=== PATIENT | male | born 1955 | race Caucasian/White ===

== ENCOUNTER → 2016-05-18 | Outpatient (CLI) | payer OTHER ==
[~2016-05-18] MED LIST: ATV5 PO; DOXYCYCLINE PO; LEVO50TA6 PO; MORP30TA23 PO; RXC5 PO; ULT/50 PO
[2016-05-18 18:01] LABS: BLOOD UREA NITROGEN 19 mg/dl (7-18)
== END | disposition home or self-care (01) ==
LOC: C.LABMFLN 14:36
PROVIDERS: ATTEND Family Medicine
DX: Z01.812 Encounter for preprocedural laboratory examination (principal)

== ENCOUNTER → 2016-06-19 | Outpatient (CLI) | payer OTHER ==
[2016-06-19 17:44] LABS: BASO % 0.4 %; BASO ABS # 0.02 K/uL (0-0.2); COMPLETE YES; EOS % 2.4 %; HEMATOCRIT 40.2 % (42-52); IG% 0.4 %; LYMPH % 33.5 %; LYMPH ABS # 1.78 K/uL (1.2-3.4); MEAN CELL VOLUME 88.7 fL (80-100); MEAN CORPUSCULAR HEMOGLOBIN 31.1 pg (25-34); MEAN CORPUSCULAR HGB CONC 35.1 g/dl (32-36); MEAN PLATELET VOLUME 10.5 fL (7.4-10.4); NEUT % 54.3 %; PLATELET COUNT 141 K/uL (130-400); RED BLOOD COUNT 4.53 M/uL (4.7-6.1); WHITE BLOOD COUNT 5.31 K/uL (4.8-10.8)
[2016-06-19 17:56] LABS: ESTIMATED AVERAGE GLUCOSE 123 mg/dl; HA1C FLAG Normal (Normal)
[2016-06-19 18:00] LABS: BLOOD UREA NITROGEN 17 mg/dl (7-18); BUN/CREATININE RATIO 15.5 (10-20); CALCIUM 8.9 mg/dl (8.5-10.1); CARBON DIOXIDE 31 mmol/L (21-32); CHLORIDE 106 mmol/L (98-107); GLUCOSE 111 mg/dl (70-99); POTASSIUM 4.3 mmol/L (3.5-5.1); SODIUM 142 mmol/L (136-145)
--- NOTE | 2016-06-25 09:25 | CODING QUERY MEDICAL NECESSITY ---
SUPPORTING DIAGNOSIS NEEDED Dr. Lopez, A supporting diagnosis is required for the test/procedure performed on this patient in order for us to be reimbursed by the patient's insurance. Please provide a supporting diagnosis for the following test/procedure listed below next to the test name along with your signature. *If there is no additional diagnosis for this patient that would support the following test/procedure please document that below next to the test/procedure. Test(s)/Procedure(s) that require a supporting diagnosis: * 60719 GLYCATED HEMOGLOBIN DIAGNOSIS: DATE OF SERVICE: 06/19/16 Provider Signature: Date: Thank you Adonis Saldana [facility] Information Management Once completed, please kindly fax back to [phone] For questions please call [phone]
== END | disposition home or self-care (01) ==
LOC: C.LABMFLN 12:06
PROVIDERS: ATTEND Family Medicine
DX: E03.9 Hypothyroidism, unspecified (principal); R63.5 Abnormal weight gain; R06.00 Dyspnea, unspecified; R73.03 Prediabetes

== ENCOUNTER 2016-08-07 07:05 | Inpatient (IN) | payer OTHER ==
[2016-07-23 13:10] VITALS: BMI 34.0
--- NOTE | 2016-07-23 13:47 | PAT Medication Instructions ---
Service Date Jul 23, 2016. Current Home Medication List Levothyroxine Sodium (Levothyroxine Sodium), 1 TAB PO QAM Tramadol Hcl (Ultram), 100 MG PO HS Medication Instructions For Your Scheduled Surgery - Take the following medications the morning of surgery with a sip of water: Levothyroxine Sodium (Levothyroxine Sodium), 1 TAB PO QAM - Take the following medications as scheduled the night before surgery: Tramadol Hcl (Ultram), 100 MG PO HS If you have any questions please call us at [phone] ([place] PA-C ) or [phone] or [phone]
[2016-07-23 14:44] LABS: URINE APPEARANCE CLEAR (CLEAR); URINE BILIRUBIN NEG (NEG); URINE COLOR YELLOW; URINE NITRITE NEG (NEG); URINE SPECIFIC GRAVITY 1.024 (1.000-1.030); UROBILINOGEN NEG (NEG)
[2016-07-23 14:51] LABS: MANUAL MICROSCOPIC REQUIRED? NO; REVIEW REQ? NO
--- NOTE | 2016-08-06 15:26 | HISTORY & PHYSICAL EXAMINATION ---
DATE OF ADMISSION: 08/07/2016 HISTORY OF PRESENT ILLNESS: Mr. Foss is a patient who is well known to our practice. He had previously undergone a lumbar decompression and fusion from L2 to sacrum. He presented to our office with increasing pain in the lower portion of his back and pain going down both of his legs. The pain is in a fairly constant fashion. He has a hard time standing and walking and feels like his coordination is off. His symptoms have been getting worse at this point and is considering possible surgical intervention. Past medical history is significant for lumbar disc herniation with a L2-L5 decompression and fusion performed in 2009. Also suffers from enlarged prostate, Lyme disease, spinal stenosis, thyroid disease. PAST SURGICAL HISTORY: Significant for low back surgery in 2009, foot surgery in 1969 and ankle surgery in 1973. MEDICATIONS: Include tramadol. ALLERGIES: He has no listed drug allergies. REVIEW OF SYSTEMS: Recorded in patient history. SOCIAL HISTORY: The patient is a 60-year-old male. He is single. Denies any alcohol or tobacco use and quit in October of 2015. Using tobacco, used for 35 years. PHYSICAL EXAMINATION: GENERAL: He stands and moves slowly about the exam room. MUSCULOSKELETAL: Lower extremity motor exam reveals no focal atrophy, although there is a break-away exam secondary to the pain. Sensation is intact to light touch. Proprioception is intact. Gait stable with a well-healed midline surgical scar. NEUROLOGIC: Visual anderson are grossly intact. CARDIOVASCULAR EXAMINATION: Reveals no gross abnormalities. ABDOMEN: Soft, nontender. EXTREMITIES: Calves are supple and nontender. The patient is alert and oriented. RADIOGRAPHIC IMAGES: Recent MRI of the lumbar spine is available for review. This reveals previous decompression and fusion from L2-L5. There is a large L1-2 disc herniation with inferior migration of free fragment. This occupies most of the canal. 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 PLAN: At this point, the patient is having significant symptoms in his lower back affecting both of his legs. He has been unable to tolerate his symptoms, unable to perform normal activities and is considering surgical operation. Intervention would include removing the hardware from L2-L5, decompressing the L1-2 segment and continuing fusion from T11-T12 back down to his previous fusion mass. Main benefit of this approach is significant chance for reduction of his radicular complaints to a lesser degree his back pain. Risks of surgery include but are not limited to from anesthetic, stroke, blindness, infection, bleeding requiring transfusion, incomplete relief of symptoms, adjacent level disease and need for reoperation. After a thorough discussion, he would like to proceed with surgery as outlined above and will make necessary arrangements for this, get preoperative testing and date of surgery set and will proceed with surgical intervention as outlined above. MARTIN
[~2016-08-07] VITALS: Ht 190.5 cm; Wt 125.7 kg
[2016-08-07] VITALS (8 sets, daily range): BP systolic 127–166; BP diastolic 72–93; PULSE 70–84; TEMP 36.3–36.7; O2SAT 94–99; Ht 190.5 cm; Wt 125.7 kg
[~2016-08-07 07:05] MED LIST changes: -ATV5 PO; +CEFAZOLIN 3000 MG/65 ML D5W IV SCH; -DOXYCYCLINE PO; +LACTATED RINGER'S 1000ML 1,000 ML IV SCH; -MORP30TA23 PO; -RXC5 PO
--- NOTE | 2016-08-07 07:29 | History & Physical Bridge Note ---
H&P Re-Evaluation Bridge Note: I have examined the patient, reviewed the History & Physical and in the interval since the performance of the History & Physical I have noted the following changes of clinical significance: No changes noted
[2016-08-07] MEDS ORDERED: FENTANYL CITRATE INJ 50 MCG/1 ML 2 ML VIAL ONE ×6 (08:34→11:58)
[2016-08-07] MEDS ORDERED: MIDAZOLAM HCL 1 MG/ML 2ML VIAL ONE (08:34)
[2016-08-07] MEDS ORDERED: SODIUM CHLORIDE 0.9% PF 50 ML VIAL ONE (08:58)
[2016-08-07] MEDS ORDERED: BACITRACIN 50000 UNIT VIAL ONE (08:58)
[2016-08-07] MEDS ORDERED: BUPIVACAINE/EPINEPHRINE 0.5% MPF 1:200,000 30 ML VIAL ONE (08:58)
[2016-08-07] MEDS ORDERED: HYDROmorphone INJ 2 MG/ML SYR/VIAL ONE ×3 (09:40→11:34)
[2016-08-07] MEDS ORDERED: HYDROmorphone INJ 1 MG/ML SYR IV PRN (09:45)
[2016-08-07] MEDS ORDERED: ATROPINE SULFATE 0.1 MG/ML 5ML SYR IV PRN (09:45)
[2016-08-07] MEDS ORDERED: ONDANSETRON INJ 2 MG/ML 2 ML VIAL IV PRN ×2 (09:45→11:15)
[2016-08-07] MEDS ORDERED: FENTANYL CITRATE INJ 50 MCG/1 ML 2 ML VIAL IV PRN (09:45)
[2016-08-07] MEDS ORDERED: LABETALOL HCL IV 5 MG/ML 20ML IV PRN (09:45)
[2016-08-07] MEDS ORDERED: MEPERIDINE HCL 25 MG/ML CARP IV PRN (09:45)
[2016-08-07] MEDS ORDERED: EpHEDrine SULFATE INJ 50 MG/ML AMP IV PRN (09:45)
[2016-08-07] MEDS ORDERED: DEXAMETHASONE SOD INJ 4 MG/ML VIAL ONE (11:06)
[2016-08-07] MEDS ORDERED: LIDOCAINE HCL 2% 2 ML VIAL (20MG/ML) ONE (11:06)
[2016-08-07] MEDS ORDERED: ROCURONIUM BROMIDE 10 MG/ML 5 ML VIAL ONE (11:06)
[2016-08-07] MEDS ORDERED: ONDANSETRON INJ 2 MG/ML 2 ML VIAL ONE ×2 (11:06→11:36)
[2016-08-07] MEDS ORDERED: PHENYLEPHRINE 100MCG/ML 5ML SYR ONE ×2 (11:06→11:36)
[2016-08-07] MEDS ORDERED: PROPOFOL IV EMULSION 10 MG/ML 20 ML VIAL IV ONE (11:06)
[2016-08-07] MEDS ORDERED: FLOSEAL HEMOSTATIC MATRIX 10ML TOP ONE (11:12)
[2016-08-07] MEDS ORDERED: MAGNESIUM HYDROXIDE SUSP 30 ML UDC PO PRN (11:15)
[2016-08-07] MEDS ORDERED: ACETAMINOPHEN 500 MG TAB PO PRN (11:15)
[2016-08-07] MEDS ORDERED: NALOXONE HCL 0.4 MG/1 ML VIAL/CARP IV PRN ×2 (11:15)
[2016-08-07] MEDS ORDERED: ALUMINUM/MAGNESIUM SUSP 30 ML UDC PO PRN (11:15)
[2016-08-07] MEDS ORDERED: SODIUM CHLORIDE 0.9% 1000ML 1,000 ML IV SCH (11:15)
[2016-08-07] MEDS ORDERED: PROMETHAZINE HCL INJ 12.5 MG in SODIUM CHLORIDE 0.9% 50ML 50 ML IV PRN (11:15)
[2016-08-07] MEDS ORDERED: FAMOTIDINE 20 MG TAB PO PRN (11:15)
[2016-08-07] MEDS ORDERED: HYDROmorphone INJ 0.5 MG/0.5 ML SYR IV PRN (11:15)
[2016-08-07] MEDS ORDERED: METOCLOPRAMIDE HCL INJ 5 MG/ML 2 ML VIAL IV PRN (11:15)
[2016-08-07] MEDS ORDERED: ACETAMINOPHEN IV 100 ML IV PRN (11:15)
[2016-08-07] MEDS ORDERED: hydrOXYzine HCL 25 MG TAB PO PRN (11:15)
[2016-08-07] MEDS ORDERED: BISACODYL 10 MG SUPP PR PRN (11:15)
[2016-08-07] MEDS ORDERED: DO NOT ADMINISTER PNEUMOCOCCAL VACCINE PRN ×2 (11:15)
[2016-08-07] MEDS ORDERED: LORAZEPAM INJ 0.5 MG in SYRINGE 0 ML IV PRN (11:15)
[2016-08-07] MEDS ORDERED: SOD PHOSPHATE/SOD BIPHOSPHATE ENEMA 132 ML BTL PR PRN (11:15)
[2016-08-07] MEDS ORDERED: LORAZEPAM 0.5 MG TAB PO PRN (11:15)
[2016-08-07] MEDS ORDERED: DO NOT ADMINISTER FLU VACCINE PRN ×3 (11:15)
--- NOTE | 2016-08-07 11:15 | [facility] Post Operative Brief Note ---
Immediate Operative Summary Operative Date Aug 07, 2016. 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 Mauri Germain Manager Export Surgeon(s) Elan Bell PA-C Estimated Blood Loss 350ml Findings stenosis Specimens A: Explanted hardware lumbar spine L2-L5
--- NOTE | 2016-08-07 11:26 | DIAGNOSTIC IMAGING REPORT ---
LUMBAR SPINE 2 OR 3 VIEW CLINICAL HISTORY: L1-L5 DECOMPRESSION laminectomy TECHNIQUE: Image intensifier COMPARISON STUDY: None FINDINGS: Image intensifier utilization for laminectomy and fusion of the lumbar spine from L1 through L5 IMPRESSION: Image intensifier utilization for laminectomy and fusion of the lumbar spine Electronically signed by: Tl Moyer M.D. 08/07/2016 11:24 AM Dictated Date/Time: 08/07/2016 11:23 AM
[2016-08-07] MEDS ORDERED: KETOROLAC TROMETHAMINE 30 MG/ML VIAL ONE (11:36)
[2016-08-07] MEDS ORDERED: NEOSTIGMINE METHYLSULFATE 1 MG/ML 10ML VIAL ONE (11:36)
[2016-08-07] MEDS ORDERED: GLYCOPYRROLATE INJ 0.2 MG/ML VIAL ONE (11:36)
--- NOTE | 2016-08-07 11:36 | OPERATIVE REPORT ---
DATE OF OPERATION: 08/07/2016 PREOPERATIVE DIAGNOSES: Spinal stenosis, herniated nucleus pulposus. POSTOPERATIVE DIAGNOSIS: Same. PROCEDURE PERFORMED: 1. Removal of posterior segmental instrumentation, L2-L3, L3-L4, L4-L5. 2. Exploration of fusion L2-L3, L3-L4, L4-L5. 3. Lumbar decompression, medial facetectomy and foraminotomy T12-L1 and L1-L2. 4. Posterior spinal fusion, T12-L2. 5. Placement posterior segmental instrumentation using Medicare rods and screws T12-L2. 6. Placement of locally harvested morselized autograft posterior gutters. 7. Placement of Infuse collagen sponge combined with Mastergraft in posterior gutters. SURGEON: Dr. Mauri Germain. PEDIATRICS PHYSICIAN: Due to the complex nature of the procedure, the entire surgery was performed with the psychiatric technician assistant of CARMINA Kulkarni. The fundraising assistant, under direct supervision, was involved in the actual performance of all aspects of the surgical procedure including hemostasis, tissue retraction and incision, instrument management, patient positioning, and wound closure. ANESTHESIA: General. DISPOSITION: The patient awakened and taken to PACU in stable condition. HISTORY OF PATIENT'S PROBLEMS: This is a 60-year-old male who presents with above-mentioned diagnosis. After failing an extensive course of nonoperative care, elected to undergo the above-mentioned procedure. Risks, benefits, pros, cons, and alternatives were outlined in detail preoperatively. DESCRIPTION OF PROCEDURE: The patient was met with preoperatively, the case discussed and all questions were addressed. At that point the patient was taken back to operative suite and after undergoing successful general intubation via department of anesthesia, she was placed in prone position on Kaden table atop Galen frame. All bony prominences were well padded and the eyes were inspected to ensure there was no external pressure placed upon them. At this point, the thoracolumbar spine was prepped and draped in normal sterile fashion. Sharp dissection with the assistance of Bovie cautery performed down to and exposing the lamina and transverse processes of T12, L1 and instrumentation at the L2, L3, L4, L5 levels bilaterally. I then proceeded to remove the hardware bilaterally exploring the fusion mass and noting it to be intact. I then performed a complete laminectomy of L1, partial laminectomy of T12 addressing severe central and lateral recess disease. Pedicle screws were then placed in T10, T11, L2 and L3 bilaterally with the assistance of fluoroscopy and appropriate size eryn locked into position. The transverse processes of T12, L1, L2, L3, then burred to subcortical bleeding bone. Infuse collagen sponge combined with Mastergraft and locally harvested morselized autograft was placed in the posterior gutters. A 7 flat HAFSA drain inserted. Incision was closed with 1-0 Vicryl in the fascia, 2-0 Vicryl subcutaneously, 4-0 Monocryl for final skin closure. Steri-Strips and sterile dressing placed. The patient was awakened and taken to PACU in stable condition. I attest to the content of the Intraoperative Record and any orders documented therein. Any exceptio ns are noted below.
[2016-08-07] MEDS ORDERED: HYDROmorphone HCL 0.5MG/ML 50 ML CASSETTE ONE (11:55)
[2016-08-07] MEDS: HYDROmorphone HCL 0.5MG/ML 50 ML CASSETTE IV PRN ×2 (13:36→23:12)
[2016-08-07] MEDS: SODIUM CHLORIDE 0.9% 1000ML 1,000 ML IV SCH ×3 (14:07→23:26)
--- NOTE | 2016-08-07 16:13 | Anesthesiology Progress Note ---
Anesthesia Post Op Note Date & Time Aug 07, 2016 at 16:12 Vital Signs Pain Intensity: 4.0 Vital Signs Past 12 Hours Date Time Temp Pulse Resp B/P Pulse Ox O2 Delivery O2 Flow Rate FiO2 08/07/16 15:30 36.4 84 16 138/79 98 Nasal Cannula 4.0 08/07/16 14:32 36.4 77 16 146/77 98 Nasal Cannula 4.0 08/07/16 14:03 36.3 80 16 161/76 96 08/07/16 13:30 99 Nasal Cannula 4.0 08/07/16 13:30 99 Nasal Cannula 4.0 08/07/16 13:30 36.5 74 16 164/81 99 Nasal Cannula 4.0 08/07/16 13:05 36.8 71 16 148/82 96 Nasal Cannula 4 08/07/16 12:48 85 14 08/07/16 12:48 85 14 98 08/07/16 12:46 148/100 08/07/16 12:43 75 10 08/07/16 12:43 75 10 99 08/07/16 12:40 174/94 08/07/16 12:38 72 6 08/07/16 12:38 72 6 89 08/07/16 12:35 165/94 08/07/16 12:33 69 5 97 08/07/16 12:33 70 5 08/07/16 12:30 165/87 08/07/16 12:28 72 6 08/07/16 12:28 73 6 94 08/07/16 12:25 164/91 08/07/16 12:23 71 12 08/07/16 12:23 71 12 95 08/07/16 12:22 72 12 94 08/07/16 12:22 72 12 08/07/16 12:22 72 12 08/07/16 12:22 72 12 94 08/07/16 12:20 152/98 08/07/16 12:20 152/98 08/07/16 12:17 83 13 08/07/16 12:17 85 13 94 08/07/16 12:17 85 13 94 08/07/16 12:17 83 13 08/07/16 12:16 167/105 08/07/16 12:16 167/105 08/07/16 12:12 73 10 08/07/16 12:12 73 10 100 08/07/16 12:12 73 10 08/07/16 12:12 73 10 100 08/07/16 12:10 170/99 08/07/16 12:10 170/99 08/07/16 12:09 161/99 08/07/16 12:09 161/99 08/07/16 12:07 73 13 98 08/07/16 12:07 74 13 08/07/16 12:07 73 13 98 08/07/16 12:07 74 13 08/07/16 12:02 78 14 08/07/16 12:02 78 14 08/07/16 12:02 80 14 99 08/07/16 12:02 80 14 99 08/07/16 12:00 180/124 08/07/16 12:00 180/124 08/07/16 11:57 84 10 99 08/07/16 11:57 84 10 08/07/16 11:57 84 10 99 08/07/16 11:57 84 10 08/07/16 11:55 179/117 08/07/16 11:55 179/117 08/07/16 11:53 182/117 08/07/16 11:53 182/117 08/07/16 11:52 85 13 210/152 100 08/07/16 11:52 85 13 08/07/16 11:52 85 13 210/152 100 08/07/16 11:52 85 13 08/07/16 11:47 71 14 98 08/07/16 11:47 71 14 08/07/16 11:47 71 14 98 08/07/16 11:47 71 14 08/07/16 11:45 155/98 08/07/16 11:45 155/98 08/07/16 11:42 71 11 150/94 99 08/07/16 11:42 71 11 08/07/16 11:42 71 11 08/07/16 11:42 36.7 72 14 150/94 99 Mask 10 08/07/16 11:42 71 11 150/94 99 08/07/16 07:57 97 Room Air 08/07/16 07:56 36.7 70 20 166/93 Notes Mental Status: alert / awake / arousable, participated in evaluation Pt Amnestic to Procedure: Yes Nausea / Vomiting: adequately controlled Pain: adequately controlled Airway Patency, RR, SpO2: stable & adequate BP & HR: stable & adequate Hydration State: stable & adequate Anesthetic Complications: no major complications apparent
[2016-08-07] MEDS: CEFAZOLIN IV 3,000 MG in DEXTROSE 5% 50ML 50 ML IV SCH (18:21)
[2016-08-07] MEDS: DEXAMETHASONE INJ 6 MG in SYRINGE 0 ML IV SCH (20:00)
[2016-08-07] MEDS: DOCUSATE SODIUM/SENNA 50/8.6MG TAB PO SCH (21:00)
[2016-08-08] VITALS (7 sets, daily range): BP systolic 124–154; BP diastolic 62–86; PULSE 64–83; TEMP 36.4–36.7; O2SAT 94–98
[2016-08-08] MEDS: CEFAZOLIN IV 3,000 MG in DEXTROSE 5% 50ML 50 ML IV SCH (01:30)
[2016-08-08] MEDS: DEXAMETHASONE INJ 6 MG in SYRINGE 0 ML IV SCH ×2 (04:24→11:55)
[2016-08-08] MEDS: LEVOTHYROXINE 50 MCG TAB PO SCH (05:56)
[2016-08-08] MEDS ORDERED: DC PCA ONE (06:00)
[2016-08-08] MEDS ORDERED: NURSING VERBAL MED ORDER ONE (06:00)
[2016-08-08 06:01] LABS: BASO % 0.1 %; BASO ABS # 0.01 K/uL (0-0.2); COMPLETE YES; IG% 0.2 %; LYMPH % 8.6 %; LYMPH ABS # 0.79 K/uL (1.2-3.4); MEAN CELL VOLUME 86.8 fL (80-100); MEAN CORPUSCULAR HEMOGLOBIN 30.8 pg (25-34); MEAN CORPUSCULAR HGB CONC 35.5 g/dl (32-36); MEAN PLATELET VOLUME 10.2 fL (7.4-10.4); MONO % 5.2 %; NEUT % 85.9 %; PLATELET COUNT 131 K/uL (130-400); WHITE BLOOD COUNT 9.23 K/uL (4.8-10.8)
[2016-08-08 06:38] LABS: BUN/CREATININE RATIO 14.5 (10-20); CALCIUM 8.3 mg/dl (8.5-10.1); POTASSIUM 4.2 mmol/L (3.5-5.1)
[2016-08-08] MEDS: OXYCODONE HCL IR 5 MG TAB (IMMEDIATE RELEASE) PO PRN ×4 (06:57→23:32)
[2016-08-08] MEDS ORDERED: RXC5 PO (10:04)
--- NOTE | 2016-08-08 10:05 | Discharge Instructions ---
Discharge Instructions Date of Service Aug 08, 2016. Admission Reason for Admission: Spinal Stenosis Discharge Discharge Diagnosis / Problem: stenosis Discharge Goals Goal(s): Improve function Activity Recommendations Activity Limitations: per Instructions/Follow-up section . Instructions / Follow-Up Instructions / Follow-Up ACTIVITY RECOMMENDATIONS: SELF CARE INSTRUCTIONS AFTER THORACIC/LUMBAR FUSIONS 1. You may walk to your tolerance. It is good exercise for your legs and back. Expect some back and intermittent leg aches and pains. 2. You may perform "counter-top" level activities (make a sandwich, juancarlos with a project, etc.). 3. No bending or lifting of more than 10 pounds or back twisting of any nature (roll like a log when turning in bed). 4. You may ride in a car for 20-30 minutes at a time. No driving until after your first visit with your doctor. 5. Frequent changes of position and restricting sitting to 30 minutes at a time will help limit the amount of back spasms and stiffness you may experience. 6. You may discontinue the use of ambulatory aids (cane, crutches, etc.) once your strength and confidence allow. 7. You may medicine man the shower and let water strike your incision when you arrive home at least once daily. Do not take a tub bath, sit in a hot tub or go into a swimming pool until after your first recheck in the office. SPECIAL CARE INSTRUCTIONS: VERY IMPORTANT TO READ AND REVIEW A. Your surgical incision has been closed with a cosmetic suture under the skin that will dissolve in about 6 weeks. In 14 days, you can use a pair of clean scissors and cut the suture that is left outside of the skin at the ends of your incision. 1. The small skin tapes can be removed 7 days after surgery if they have not fallen off by that point. 2. You may keep the wound open to air as much as possible to promote healing after post-op day number 5 unless told otherwise by your doctor. 3. If you think the wound looks like it is becoming infected (redness or worsening drainage) and/or you are experiencing fever, chill or worsening back pain and muscle spasms, contact the office so that we may evaluate you as soon as possible. B. Complications are uncommon, but please contact us if you have any signs or symptoms of: 1. wound infection (fever higher than 102.5 degrees F, redness, separation of wound, drainage, or increasing pain from the incision) 2. blood clots in legs (pain, swelling, redness and warmth in legs) 3. urinary tract infection (fever higher than 102.5 degrees F, burning upon urination or increased frequency of urination) 4. nerve problems (inability to walk on your toes or heels, numbness, loss of bowel or bladder control) 5. any other symptoms that concern you C. Please call the office at if you have any concerns or questions about your operation or recovery. D. No smoking! Smoking drastically decreases the chance of a solid fusion. E. Do not take any anti-inflammatory medications (Indocin, Advil, Motrin, Aspirin, Naprosyn, etc.) as these may inhibit the chance of a solid fusion. Tylenol is okay to take for pain. MANAGING PAIN AFTER SPINAL SURGERY 1. Narcotic medication is intended for short-term use and will be provided for surgical pain. Surgical pain usually lasts for a period of 4-6 weeks. Narcotic medication includes Percocet, Vicodin, Darvocet, Tylenol #3 or Lortab. 2. Longer-term pain is more appropriately treated with non-narcotic medication such as Tylenol ES. 3. Muscle spasm is not appropriately treated with narcotics. Muscle relaxers such as Soma, Flexeril or Skelaxin can be used along with Tylenol ES. 4. Remember that we all live with some "aches and pains". This is not unusual or uncommon after an injury or as we get older. a. Back pain is expected and may include muscle spasms for 4 to 6 weeks after surgery. The pain should gradually improve. If the pain worsens for no apparent reason, please contact the office. b. Intermittent leg pain may also be experienced and should not be concerned about unless it worsens for no apparent reason. If so, please contact the office. 5. We will provide appropriate medication within the normal guidelines of their prescribed use. We will also be very cautious and aware of potential abuse and extended duration of patients' medication needs. a. Pain medications are for your comfort and to assist with sleep and rest so that the tissue can heal. They are not provided in order to return to normal activity and should not be used through the day. To do so or worsening pain at night can result from ongoing tissue damage and development of tolerance to the prescribed medicine. 6. Please allow 2-3 days to process refills. Prescriptions will not be mailed but must be picked up at the office. FOLLOW UP VISIT: Keep your scheduled follow-up appointment. Any questions, please call the office at . Current Hospital Diet Patient's current hospital diet: Regular Diet Discharge Diet Recommended Diet: Regular Diet Procedures Procedures Performed: L1-L2 Lumbar Laminectomy, Decompression, T12-L3 Posterolateral Fusion, Bone Morphogenetic Protein, L2-L5 Hardware Removal Pending Studies Studies pending at discharge: no Laboratory Results Hemoglobin A1c Test 06/19/16 13:42 Range/Units Estimated Average Glucose 123 mg/dl Hemoglobin A1c 5.9 H 4.5-5.6 % Medical Emergencies . Who to Call and When: Medical Emergencies: If at any time you feel your situation is an emergency, please call 911 immediately. . Non-Emergent Contact Non-Emergency issues call your: Primary Care Provider . "Provider Documentation" section prepared by Mauri Germain. VTE Core Measure Inpt VTE Proph given/why not?: Mary Liu, SCD's
--- NOTE | 2016-08-08 10:19 | PROGRESS NOTE ---
DATE: 08/08/2016 DATE: 08/08/2016. SUBJECTIVE: Postop day 1. Back pain is controlled. Leg pain markedly improved. Vital signs stable. T-max 36.6. HAFSA drained 120 mL last shift. Hematocrit this a.m. is 33.0. OBJECTIVE: On exam the patient is sitting up in bed, has good strength to testing, appears quite comfortable. ASSESSMENT: Status post thoracolumbar decompression and fusion. PLAN: At this time, initiate physical therapy, advance his bowel regimen and see how he progresses throughout the weekend and anticipate possible discharge home Wednesday.
[2016-08-08] MEDS: DOCUSATE SODIUM/SENNA 50/8.6MG TAB PO SCH (21:45)
[2016-08-09] MEDS: LEVOTHYROXINE 50 MCG TAB PO SCH (05:48)
[2016-08-09] MEDS: POLYETHYLENE (MIRALAX) 17 GM PACK PO SCH ×4 (05:48→23:48)
[2016-08-09] MEDS: OXYCODONE HCL IR 5 MG TAB (IMMEDIATE RELEASE) PO PRN ×4 (06:02→22:49)
[2016-08-09 06:29] VITALS: BP 128/67; PULSE 65; TEMP 36.7; O2SAT 96
--- NOTE | 2016-08-09 09:11 | PROGRESS NOTE ---
DATE: 08/09/2016 Postoperative day #2. Back pain is controlled. Leg pain is markedly improved. Vital signs are stable. T-max is 36.7. HAFSA drained 55 mL. PHYSICAL EXAMINATION: He is in chair at bedside. He has good strength to testing and appears comfortable. ASSESSMENT: Status post lumbar decompression and fusion. PLAN: At this time he is to continue with physical therapy today. Advance his bowel regimen and anticipate home tomorrow with home health.
[2016-08-09 15:14] VITALS: BP 128/76; PULSE 65; TEMP 36.2; O2SAT 96
[2016-08-09] MEDS: DOCUSATE SODIUM/SENNA 50/8.6MG TAB PO SCH (21:00)
[2016-08-09 22:55] VITALS: BP 129/78; PULSE 58; TEMP 36.8; O2SAT 96
[2016-08-10] MEDS: OXYCODONE HCL IR 5 MG TAB (IMMEDIATE RELEASE) PO PRN ×3 (04:36→12:49)
[2016-08-10] MEDS: POLYETHYLENE (MIRALAX) 17 GM PACK PO SCH ×2 (05:45→12:49)
[2016-08-10] MEDS: LEVOTHYROXINE 50 MCG TAB PO SCH (05:46)
[2016-08-10 06:11] VITALS: BP 124/73; PULSE 61; TEMP 36.6; O2SAT 94
--- NOTE | 2016-08-10 07:39 | Anesthesiology Progress Note ---
Anesthesia Post Op Note Date & Time Aug 10, 2016 at 07:38 Vital Signs Vital Signs Past 12 Hours Date Time Temp Pulse Resp B/P Pulse Ox O2 Delivery O2 Flow Rate FiO2 08/10/16 06:11 36.6 61 16 124/73 94 Room Air 08/09/16 23:25 Room Air 08/09/16 22:55 36.8 58 18 129/78 96 Room Air Notes Mental Status: alert / awake / arousable, participated in evaluation Pt Amnestic to Procedure: Yes Nausea / Vomiting: adequately controlled Pain: adequately controlled Airway Patency, RR, SpO2: stable & adequate BP & HR: stable & adequate Hydration State: stable & adequate Anesthetic Complications: no major complications apparent
--- NOTE | 2016-08-10 11:37 | DISCHARGE SUMMARY ---
PRINCIPAL DIAGNOSIS: Spinal stenosis. HOSPITAL COURSE FOLLOWS: On 08/07/2016 patient underwent multilevel lumbar decompression and fusion, tolerated this well and taken to the orthopedic floor postoperatively. Postop day #1 he was up and ambulatory, progressed to postop day #2. HAFSA drain decreasing appropriately. Bowels were working well. Subsequently discharged home on 08/10/2016. Discharge orders and instructions found on the chart for further review.
[2016-08-10 13:39] VITALS: BP 124/73; PULSE 61; TEMP 36.6; O2SAT 94
== END 2016-08-10 14:56 | disposition home health service (06) | DRG 460 ==
LOC: ENRESERVTM → ENRESERVDT → C.ACU 07:05 → C.3E 09:00 → CANBEDREQ 14:03
PROVIDERS: ADMIT Orthopaedic Surgery Orthopaedic Surgery of the Spine; ATTEND Orthopaedic Surgery Orthopaedic Surgery of the Spine
PROC: 0SP004Z Removal of Internal Fixation Device from Lumbar Vertebral Joint, Open Approach (ICD-10-PCS; principal; 2016-08-07 09:20)
PROC: 3E0U0GB Introduction of Recombinant Bone Morphogenetic Protein into Joints, Open Approach (ICD-10-PCS; principal; 2016-08-07 09:20)
PROC: 0RGA071 Fusion of Thoracolumbar Vertebral Joint with Autologous Tissue Substitute, Posterior Approach, Posterior Column, Open Approach (ICD-10-PCS; principal; 2016-08-07 09:20)
PROC: 0RG0071 Fusion of Occipital-cervical Joint with Autologous Tissue Substitute, Posterior Approach, Posterior Column, Open Approach (ICD-10-PCS; principal; 2016-08-07 09:20)
DX: M48.05 Spinal stenosis, thoracolumbar region (principal); M48.06 Spinal stenosis, lumbar region; M51.26 Other intervertebral disc displacement, lumbar region; E07.9 Disorder of thyroid, unspecified; N40.0 Benign prostatic hyperplasia without lower urinary tract symptoms; Z87.891 Personal history of nicotine dependence; E66.9 Obesity, unspecified; Z68.34 Body mass index [BMI] 34.0-34.9, adult; Z98.1 Arthrodesis status; Z79.891 Long term (current) use of opiate analgesic; Z79.899 Other long term (current) drug therapy

== ENCOUNTER → 2016-11-17 | Outpatient (CLI) | payer OTHER ==
[~2016-11-17] MED LIST changes: -CEFAZOLIN 3000 MG/65 ML D5W IV SCH; -LACTATED RINGER'S 1000ML 1,000 ML IV SCH; +RXC5 PO
[2016-11-17 13:40] LABS: ALT/SGPT 51 U/L (12-78); AST/SGOT 15 U/L (15-37); BLOOD UREA NITROGEN 17 mg/dl (7-18); BUN/CREATININE RATIO 12.4 (10-20); CALCIUM 9.1 mg/dl (8.5-10.1); CARBON DIOXIDE 25 mmol/L (21-32); CHLORIDE 107 mmol/L (98-107); CHOLESTEROL 158 mg/dl (0-200); GLUCOSE 143 mg/dl (70-99); POTASSIUM 3.7 mmol/L (3.5-5.1); SODIUM 141 mmol/L (136-145); TRIGLYCERIDES 173 mg/dl (0-150); VERY LOW DENSITY LIPOPROT CALC 35 mg/dl
[2016-11-17 13:50] LABS: HDL CHOLESTEROL 40 mg/dl; LDL CHOLESTEROL CALCULATED 83 mg/dl
== END | disposition home or self-care (01) ==
LOC: C.LABMFLN 10:13
PROVIDERS: ATTEND Family Medicine
DX: R60.9 Edema, unspecified (principal); E78.5 Hyperlipidemia, unspecified; E03.9 Hypothyroidism, unspecified

== ENCOUNTER → 2017-02-24 | Outpatient (CLI) | payer OTHER ==
[2017-02-24 18:09] LABS: BASO % 0.2 %; BASO ABS # 0.01 K/uL (0-0.2); COMPLETE YES; EOS % 1.8 %; HEMATOCRIT 40.3 % (42-52); IG% 0.2 %; LYMPH % 36.9 %; LYMPH ABS # 2.23 K/uL (1.2-3.4); MEAN CELL VOLUME 87.8 fL (80-100); MEAN CORPUSCULAR HEMOGLOBIN 30.3 pg (25-34); MEAN CORPUSCULAR HGB CONC 34.5 g/dl (32-36); MEAN PLATELET VOLUME 10.5 fL (7.4-10.4); MONO % 10.9 %; PLATELET COUNT 147 K/uL (130-400); RED BLOOD COUNT 4.59 M/uL (4.7-6.1); WHITE BLOOD COUNT 6.05 K/uL (4.8-10.8)
[2017-02-24 18:26] LABS: ALT/SGPT 52 U/L (12-78); AST/SGOT 18 U/L (15-37); BLOOD UREA NITROGEN 22 mg/dl (7-18); BUN/CREATININE RATIO 16.6 (10-20); CALCIUM 8.7 mg/dl (8.5-10.1); CARBON DIOXIDE 30 mmol/L (21-32); CHLORIDE 106 mmol/L (98-107); GLUCOSE 101 mg/dl (70-99); POTASSIUM 4.3 mmol/L (3.5-5.1); SODIUM 140 mmol/L (136-145)
[2017-02-24 18:36] LABS: ALKALINE PHOSPHATASE 48 U/L (45-117); THYROID STIMULATING HORMONE 0.984 uIu/ml (0.300-4.500)
[2017-02-25 06:20] LABS: ESTIMATED AVERAGE GLUCOSE 120 mg/dl; HA1C FLAG Normal (Normal)
--- NOTE | 2017-03-04 12:03 | CODING QUERY MEDICAL NECESSITY ---
SUPPORTING DIAGNOSIS NEEDED A supporting diagnosis is required for the test/procedure performed on this patient in order for us to be reimbursed by the patient's insurance. Please provide a supporting diagnosis for the following test/procedure listed below next to the test name along with your signature. *If there is no additional diagnosis for this patient that would support the following test/procedure please document that below next to the test/procedure. Test(s)/Procedure(s) that require a supporting diagnosis: * HEMOGLOBIN A1C DIAGNOSIS: Provider Signature: Date: Thank you Genevieve Montano [employer] Information Management Once completed, please kindly fax back to [phone] For questions please call [phone]
== END | disposition home or self-care (01) ==
LOC: C.LABMFLN 14:37
PROVIDERS: ATTEND Family Medicine
DX: E03.9 Hypothyroidism, unspecified (principal); R06.00 Dyspnea, unspecified; R53.82 Chronic fatigue, unspecified; E11.9 Type 2 diabetes mellitus without complications

== ENCOUNTER → 2017-09-06 | Outpatient (CLI) | payer OTHER ==
[2017-09-06 13:39] LABS: ALT/SGPT 71 U/L (12-78); AST/SGOT 23 U/L (15-37); BLOOD UREA NITROGEN 15 mg/dl (7-18); CALCIUM 8.7 mg/dl (8.5-10.1); CARBON DIOXIDE 26 mmol/L (21-32); CHOLESTEROL 156 mg/dl (0-200); CREATININE 1.52 mg/dl (0.60-1.40); GLUCOSE 268 mg/dl (70-99); LIPASE 150 U/L (73-393); POTASSIUM 4.4 mmol/L (3.5-5.1); SODIUM 134 mmol/L (136-145)
[2017-09-06 13:47] LABS: HEMOGLOBIN A1C 9.2 % (4.5-5.6)
[2017-09-06 13:48] LABS: ALKALINE PHOSPHATASE 51 U/L (45-117); LDL CHOLESTEROL CALCULATED 89 mg/dl; TOTAL PROTEIN 7.4 gm/dl (6.4-8.2)
== END | disposition home or self-care (01) ==
LOC: C.LABMFLN 10:48
PROVIDERS: ATTEND Family Medicine
DX: R10.31 Right lower quadrant pain (principal); E03.9 Hypothyroidism, unspecified; E78.5 Hyperlipidemia, unspecified; R73.03 Prediabetes

== ENCOUNTER → 2017-09-16 | Outpatient (CLI) | payer OTHER | END | disposition home or self-care (01) | LOC: C.LABMFLN 13:43 | PROVIDERS: ATTEND Family Medicine | DX: E11.43 Type 2 diabetes mellitus with diabetic autonomic (poly)neuropathy (principal) ==

== ENCOUNTER → 2017-12-24 | Outpatient (CLI) | payer OTHER ==
[2017-12-24 18:12] LABS: BLOOD UREA NITROGEN 20 mg/dl (7-18); CALCIUM 8.7 mg/dl (8.5-10.1); CARBON DIOXIDE 26 mmol/L (21-32); CREATININE 1.18 mg/dl (0.60-1.40); GLUCOSE 97 mg/dl (70-99); SODIUM 138 mmol/L (136-145)
[2017-12-25 06:40] LABS: HEMOGLOBIN A1C 6.1 % (4.5-5.6)
== END | disposition home or self-care (01) ==
LOC: C.LABMFLN 15:56
PROVIDERS: ATTEND Family Medicine
DX: Z13.1 Encounter for screening for diabetes mellitus (principal)